=== PATIENT | male | born 1985 ===

== ENCOUNTER 2025-07-31 01:06 | Inpatient (IN) | payer SELFPAY ==
[2025-07-31] VITALS (81 sets, daily range): BP systolic 136–208; BP diastolic 88–116; PULSE 85–108; RESP 7–30; TEMP 36.6–38.5; O2SAT 95–100
--- NOTE | 2025-07-31 01:15 | DI.CT_ITS ---
Exam(s) CT ABDOMEN PELVIS W EXAM: CT ABDOMEN PELVIS W CLINICAL HISTORY: abd pain/vomiting; previous abd surgery. TECHNIQUE: Imaging Protocol: Axial computed tomography images with coronal and sagittal reformatted images were created and reviewed CONTRAST MATERIAL: Intravenous: Omnipaque 350 Contrast volume:75 ml Oral: no COMPARISON: No exams were available for comparison FINDINGS: ABDOMEN and PELVIS: Lung Bases: No acute findings. Liver: Normal density. No suspicious mass. Gallbladder and biliary tract: Cholecystectomy. No biliary dilation. Pancreas: Head of the pancreas is absent. History of Whipple procedure. Some swelling of the body and tail and surrounding stranding in the fat consistent with pancreatitis. There is mild dilatation of the pancreatic duct. There is no evidence of hemorrhage or pseudocyst. No evidence of mass. Spleen: Normal. Kidneys: There is severe atrophy of the upper pole of the right kidney. There is cyst at the lower pole of the right kidney. The some compensatory hypertrophy of the left kidney. No radiodense stones. No obstructive uropathy. No suspicious masses seen. Adrenal glands: No masses seen. Vasculature: Abdominal aorta non-dilated. Soft tissues: Unremarkable. Bladder: No gross wall thickening. No calculi.No focal mass. Bowel: Suture material stomach and and proximal small bowel. No obstruction. No bowel wall thickening. Appendix normal. Peritoneal cavity: No ascites. No focal collection. No mesenteric inflammatory response. No free air. Bones: Unremarkable for age. Reproductive organs: Unremarkable. Lymph nodes: No pathologically enlarged lymph nodes. IMPRESSION:: Pancreatitis. Status post Whipple procedure. The preliminary [facility] report was reviewed. RADIATION DOSE DELIVERED: 246.92mGy.cm Total DLP DATA REPOSITORY: All CT scans at this facility are submitted to the National Radiology Data Registry (NRDR) Dose Index Registry (DIR) with the [employer] [place] [employer] [employer] (ACR). RADIATION OPTIMIZATION: All CT scans at this facility use at least one of these dose optimization techniques: automated exposure control; mA and/or kV adjustment per patient size (includes targeted exams where dose is matched to clinical indication); or iterative reconstruction.
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
[2025-07-31] MEDS: Normal Saline 1,000 ML 1000 ML IV (01:35)
[2025-07-31 01:36] LABS: BE (Venous) 2 mmol/L (-2-3); HCO3 (Venous) 27 mmol/L (23-28); O2 Sat (Venous) 42 %; TCO2 (Venous) 24 mmol/L (24-29); pCO2 (Venous) 47 mmHg (41-51); pO2 (Venous) 24 mmHg
[2025-07-31] MEDS: Ondansetron 4 MG/2 ML VIAL IVP ×3 (01:36→17:14)
[2025-07-31] MEDS: MORPHine 10 MG/ML VIAL 4 MG IVP ×2 (01:36→03:06)
[2025-07-31 01:37] LABS: Abs Immature Grans 0.06 10^3/uL (0.0-0.06); HCT 41.9 % (40.0-50.0); HGB 14.5 g/dL (13.5-17.5); Immature Grans % 0.4 %; MCH 33.2 pg (27.0-33.0); MCHC 34.6 % (32.0-36.0); MCV 96 fL (80-95); MPV 9.8 fL (8.0-11.0); Platelet Count 324 10^3/uL (130-400); RBC 4.37 10^6/uL (4.36-5.78); RDW 11.9 % (11.8-14.1); RDW-SD 42.0 fL; WBC 17.02 10^3/uL (4.4-10.8)
[2025-07-31] MEDS: Omnipaque 350 MG/ML 100 ML BTL IJ (01:38)
[2025-07-31] MEDS: Normal Saline - Diluent 50 ML VIAL IJ (01:38)
[2025-07-31] MEDS: Normal Saline Flush 10 ML SYR IVP ×6 (01:38→21:36)
[2025-07-31 01:56] LABS: Lipase 214 U/L (<53)
[2025-07-31 01:57] LABS: Magnesium 2.0 mg/dL (1.6-2.6)
[2025-07-31 01:58] LABS: ALT 21 U/L (10-49); AST 19 U/L (<34); Albumin 5.1 g/dL (3.2-5.0); Alkaline Phosphatase 57 U/L (46-116); Anion Gap 10.5 mmol/L (3-11); BUN 11 mg/dL (9-23); Bilirubin, Total 1.10 mg/dL (0.2-1.2); CO2 26.5 mmol/L (20.0-31.0); Calcium 9.4 mg/dL (8.3-10.6); Chloride 107 mmol/L (98-107); Glucose 120 mg/dL (74-106); Potassium 4.2 mmol/L (3.5-5.1); Sodium 144 mmol/L (136-145); Total Protein 8.2 g/dL (5.7-8.2)
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
[2025-07-31 02:38] LABS: Glucose Negative (Negative)
--- NOTE | 2025-07-31 04:00 | RT.EKG_ITS ---
APPROVED REPORT Exam: Resting ECG Reason for Exam: chest pain Patient Location: E HR:89 bpm ECG Measurements Heart Rate 89 AXIS OK 129 P 79 QRSd 92 QRS 81 QT 336 T 75 QTc 409 Conclusion Sinus rhythm...normal P axis, V-rate 60- 99 Probable left atrial enlargement...P >50mS, <-0.10mV V1 Normmal [place]/Interval No actue ST changes
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
[2025-07-31] MEDS: Lactated Ringers 1,000 ML 175 ML IV ×3 (05:24→22:18)
--- NOTE | 2025-07-31 05:33 | W.PC.ACHO ---
Registration Status: ADM YADIEL Primary Language: Preferred Language: ED Information & Data Chief Complaint Abd Prob 07/31/25 01:40 Triage Note pt has a whipple, abd pain 07/31/25 01:09 started around 1930 tonight, mid epigastric pain, dull back pain with sharpness, front comes and goes, 04/01 (Last Reviewed 07/31/25 @ 01:45 by Jorge Oden MD) H/O ventral hernia repair S/P cholecystectomy History of partial pancreatectomy Most Recent Vital Signs Temperature 37.4 C 07/31/25 05:11 Temperature Source Tympanic 07/31/25 05:11 Pulse 91 H 07/31/25 05:11 Pulse 90 07/31/25 04:21 Respiratory Rate 16 07/31/25 05:11 Respiratory Effort Normal 07/31/25 04:58 Respiratory Depth Normal 07/31/25 04:58 Respiratory Pattern Normal 07/31/25 04:58 Blood Pressure 136/103 H 07/31/25 05:11 Blood Pressure Mean 114 07/31/25 05:11 Blood Pressure Position Supine 07/31/25 01:09 Pulse Oximetry 99 07/31/25 05:11 Oxygen Delivery Method Room Air 07/31/25 05:11 Oxygen Flow Rate 0 07/31/25 05:11 Pain Level 6 07/31/25 04:58 Allergies No Known Allergies Allergy (Unverified 07/31/25 01:16) Precautions Isolation Standard precaution 07/31/25 01:19 Active Medications Generic Name Dose Route Start Last Admin Trade Name Freq PRN Reason Stop Dose Admin Ringer's Solution 1,000 mls @ 175 mls/hr 07/31/25 04:00 07/31/25 05:24 IV 175 mls/hr INFUSION APOLINAR Administration Iohexol 100 ml 07/31/25 01:45 07/31/25 01:38 Omnipaque 350 Mg/Ml 100 Ml Btl IJ 08/30/25 23:59 75 ml DIRECTED APOLINAR Administration Sodium Chloride 50 ml 07/31/25 01:45 07/31/25 01:38 Normal Saline - Diluent 50 Ml Vial IJ 50 ml DIRECTED APOLINAR Administration Sodium Chloride 0 ml 07/31/25 01:33 07/31/25 01:38 Normal Saline Flush 10 Ml Syr IVP 10 ml PRN PRN Administration IV IV Catheter Type [Right Peripheral IV Antecubital] IV Catheter Gauge [Right 18 Antecubital] Diet Orders Category Date Time Status Nothing Per Oral [DIET] Nutrition 07/31/25 03:58 Active Diagnostics 07/31/25 07/31/25 07/31/25 Range/Units 05:35 04:00 02:30 WBC Pending (4.4-10.8) 10^3/uL RBC Pending (4.36-5.78) 10^6/uL Hgb Pending (13.5-17.5) g/dL Hct Pending (40.0-50.0) % MCV Pending (80-95) fL MCH Pending (27.0-33.0) pg MCHC Pending (32.0-36.0) % RDW Pending (11.8-14.1) % Plt Count Pending (130-400) 10^3/uL MPV Pending (8.0-11.0) fL Immature Gran % Pending % Neutrophils % Pending % Lymphocytes % Pending % Monocytes % Pending % Eosinophils % Pending % Basophils % Pending % Nucleated RBC % (0.0-0.3) % Absolute Neutrophils Pending (1.2-6.7) 10^3/uL Absolute Lymphocytes Pending (1.2-3.4) 10^3/uL Absolute Monocytes Pending (0.1-0.8) 10^3/uL Absolute Eosinophils Pending (0.0-0.7) 10^3/uL Absolute Basophils Pending (0.0-0.2) 10^3/uL VBG pH (7.31-7.41) VBG pCO2 (41-51) mmHg VBG pO2 mmHg VBG HCO3 (23-28) mmol/L VBG Total CO2 (24-29) mmol/L VBG O2 Saturation % VBG Base Excess (-2-3) mmol/L VBG Lactate (<or=2.0) mmol/L Sodium Pending (136-145) mmol/L Potassium Pending (3.5-5.1) mmol/L Chloride Pending (98-107) mmol/L Carbon Dioxide Pending (20.0-31.0) mmol/L Anion Gap Pending (3-11) mmol/L BUN Pending (9-23) mg/dL Creatinine Pending (0.73-1.18) mg/dL Est GFR (CKD-EPI 2020) Pending (mL/min/1.73m2) Glucose Pending (74-106) mg/dL Calcium Pending (8.3-10.6) mg/dL Magnesium (1.6-2.6) mg/dL Total Bilirubin Pending (0.2-1.2) mg/dL AST Pending (<34) U/L ALT Pending (10-49) U/L Alkaline Phosphatase Pending (46-116) U/L Troponin I Pending Total Protein Pending (5.7-8.2) g/dL Albumin Pending (3.2-5.0) g/dL Triglycerides Pending Total Cholesterol Pending LDL Cholesterol, Calc Pending HDL Cholesterol Pending Lipase Pending (<53) U/L Urine Color Yellow (Yellow) Urine Clarity Clear (Clear) Urine pH 7.0 (5-8) Ur Specific [place] 1.015 (1.005-1.025) Urine Protein Negative (Neg-Trace) mg/dL Urine Ketones 40 H (Negative) mg/dL Urine Blood Negative (Negative) Urine Nitrite Negative (Negative) Urine Bilirubin Negative (Negative) Urine Urobilinogen 2.0 H (Up to 0.2) mg/dL Ur Leukocyte Esterase Negative (Negative) Urine Glucose Negative (Negative) mg/dL Ethyl Alcohol Pending 07/31/25 Range/Units 01:20 WBC 17.02 H (4.4-10.8) 10^3/uL RBC 4.37 (4.36-5.78) 10^6/uL Hgb 14.5 (13.5-17.5) g/dL Hct 41.9 (40.0-50.0) % MCV 96 H (80-95) fL MCH 33.2 H (27.0-33.0) pg MCHC 34.6 (32.0-36.0) % RDW 11.9 (11.8-14.1) % Plt Count 324 (130-400) 10^3/uL MPV 9.8 (8.0-11.0) fL Immature Gran % 0.4 % Neutrophils % 85.8 % Lymphocytes % 5.4 % Monocytes % 7.9 % Eosinophils % 0.1 % Basophils % 0.4 % Nucleated RBC % 0.0 (0.0-0.3) % Absolute Neutrophils 14.60 H (1.2-6.7) 10^3/uL Absolute Lymphocytes 0.92 L (1.2-3.4) 10^3/uL Absolute Monocytes 1.34 H (0.1-0.8) 10^3/uL Absolute Eosinophils 0.02 (0.0-0.7) 10^3/uL Absolute Basophils 0.07 (0.0-0.2) 10^3/uL VBG pH 7.37 (7.31-7.41) VBG pCO2 47 (41-51) mmHg VBG pO2 24 mmHg VBG HCO3 27 (23-28) mmol/L VBG Total CO2 24 (24-29) mmol/L VBG O2 Saturation 42 % VBG Base Excess 2 (-2-3) mmol/L VBG Lactate 1.6 (<or=2.0) mmol/L Sodium 144 (136-145) mmol/L Potassium 4.2 (3.5-5.1) mmol/L Chloride 107 (98-107) mmol/L Carbon Dioxide 26.5 (20.0-31.0) mmol/L Anion Gap 10.5 (3-11) mmol/L BUN 11 (9-23) mg/dL Creatinine 0.88 (0.73-1.18) mg/dL Est GFR (CKD-EPI 2020) 95.54 (mL/min/1.73m2) Glucose 120 H (74-106) mg/dL Calcium 9.4 (8.3-10.6) mg/dL Magnesium 2.0 (1.6-2.6) mg/dL Total Bilirubin 1.10 (0.2-1.2) mg/dL AST 19 (<34) U/L ALT 21 (10-49) U/L Alkaline Phosphatase 57 (46-116) U/L Troponin I Total Protein 8.2 (5.7-8.2) g/dL Albumin 5.1 H (3.2-5.0) g/dL Triglycerides Total Cholesterol LDL Cholesterol, Calc HDL Cholesterol Lipase 214 H (<53) U/L Urine Color (Yellow) Urine Clarity (Clear) Urine pH (5-8) Ur Specific [place] (1.005-1.025) Urine Protein (Neg-Trace) mg/dL Urine Ketones (Negative) mg/dL Urine Blood (Negative) Urine Nitrite (Negative) Urine Bilirubin (Negative) Urine Urobilinogen (Up to 0.2) mg/dL Ur Leukocyte Esterase (Negative) Urine Glucose (Negative) mg/dL Ethyl Alcohol Intake and Output - 24 Hour Total 07/31/25 01:06 thru 07/31/25 04:58 Intake Total 1000 Balance 1000 Weight 65.544 kg Intake: IV 1000 Falls Risk Assessment History of Falls No History 07/31/25 04:58 Contributing Factors No Factors 07/31/25 04:58 Ambulatory Aids Independent 07/31/25 04:58 Tubes/Lines W/no contributing factors 07/31/25 04:58 Gait Evaluation No gait disturbance 07/31/25 04:58 Cognition No cognitive impairment 07/31/25 01:23 Fall Total Score 10 07/31/25 04:58 Level of Risk Standard/Low Risk 07/31/25 04:58 Problems Chest pain (Acute) Acute pancreatitis (Acute) Attestation Statement: By documenting the first initial, last name, and credentials of the reporting nurse below, both parties acknowledge that all relevant information regarding the patient handoff has been communicated, and that all questions have been addressed to ensure continuity and safety of care. Additional Patient Information/Comments: ABD pain N/V few weeks ago, AOx4, BP 181/106 probably related to pain, morphine give x2 dose with some relief, zofran and fluid received at the ER. ALL questions unswered Report Received From: [facility]
[2025-07-31] MEDS: MORPHine 2 MG/ML SYR IVP (06:18)
[2025-07-31 06:51] LABS: Abs Immature Grans 0.06 10^3/uL (0.0-0.06); HCT 38.6 % (40.0-50.0); HGB 13.4 g/dL (13.5-17.5); Immature Grans % 0.4 %; MCH 33.6 pg (27.0-33.0); MCHC 34.7 % (32.0-36.0); MCV 97 fL (80-95); MPV 9.9 fL (8.0-11.0); Platelet Count 272 10^3/uL (130-400); RBC 3.99 10^6/uL (4.36-5.78); RDW 12.0 % (11.8-14.1); RDW-SD 43.1 fL; WBC 14.82 10^3/uL (4.4-10.8)
[2025-07-31 07:05] LABS: Lipase 121 U/L (<53)
[2025-07-31 07:07] LABS: ALT 18 U/L (10-49); AST 15 U/L (<34); Albumin 4.5 g/dL (3.2-5.0); Alkaline Phosphatase 50 U/L (46-116); Anion Gap 9.7 mmol/L (3-11); BUN 8 mg/dL (9-23); Bilirubin, Total 1.10 mg/dL (0.2-1.2); CO2 25.3 mmol/L (20.0-31.0); Calcium 8.5 mg/dL (8.3-10.6); Chloride 108 mmol/L (98-107); Glucose 110 mg/dL (74-106); Potassium 4.2 mmol/L (3.5-5.1); Sodium 143 mmol/L (136-145); Total Protein 7.1 g/dL (5.7-8.2)
[2025-07-31 07:08] LABS: Cholesterol 94 mg/dL (<200); HDL Cholesterol 31 mg/dL (>40); Troponin I < 3 ng/L (<54)
[2025-07-31] MEDS: Acetaminophen 325 MG TAB PO ×3 (08:10→18:33)
[2025-07-31] MEDS: Enoxaparin 40 MG/0.4 ML SYR SC (08:12)
--- NOTE | 2025-07-31 09:01 | INITIAL_ITS ---
Date of service: 07/31/25 Time of Service: 09:01 Care Management Initial Assmt Initial Assessment Reason for Hospitalization: pancreatitis Functional Status/Living Situation Patient Presentation: Phillip was sitting up in bed when CM met with him. He was easily engaged and soft spoken. Phillip admitted to being in a lot of pain and could be seen grimacing every few minutes. He shared that he has been sick since but didn't want to seek medical help. Phillip does not have a PCP nor does he have insurance. He explained that while his employer offers insurance, he cannot afford it. CM made a referral to [facility] to see if he is eligible for Medicaid. CM al;so provided Phillip with a Patient Financial Assist packet. Phillip is and has a 3 year old son. He and his ex- share custody and it has worked out well for all. 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 Town of Residence: [place] Resides with: Child (shares custody of son) Significant Other/Family: [facility] Employment Status: Employed Instrumental Activities of Daily Living (ADLs): Independent Medications Medication Management: No Issues/Barriers identified Physical Functioning/Mobility Assistive Device: none Advance Directives Advance Directives: Do you have an Advance Directive: N , 13:07 AD On File at [facility]: N 06/06/14, 13:07 Date Asked 07/31/25 Today, 07:46 AD Date Reviewed COLST On File at [facility] COLST Date Scanned Code Status Resuscitation Status Full Code Portal Pt does not currently have a portal and education provided: Yes Care Team Visit Care Team Role Provider Type Obi Alberto MD MD [facility] STAFF PHYSICIAN Unknown Unknown Primary Care Provider STAFF PHYSICIAN Jorge Oden MD Emergency Provider [facility] STAFF PHYSICIAN Jorge Burris MD Admit Provider [facility] STAFF PHYSICIAN Attending Provider Discharge Potential Discharge Needs: PCP F/U Appt Anticipated Barriers to Discharge: None Identified Patient/Family Education Needs: Review discharge instructions, discuss Ask Me Three Transportation: Private vehicle Plan: Anticipate Phillip will be discharged home with no new services when medically cleared. He will follow up with the T-doc assigned and transport with family. CM will follow and continue to assess for discharge concerns. Social Determinants of Health Screening Social Determinants of health last assessed in clinic: 07/31/25 Will the Patient Participate in the Screening?: Yes Do you worry about having a steady place to live?: no Problems where you live: no known problems In the past 12 months, have you had to go without electric, gas, oil or water in your home?: no 1. Within the past 12 months, we worried whether our food would run out before we got money to buy more.: Never true 2. Within the past 12 months, the food we bought just didn't last and we didn't have money to get more.: Never true Has lack of transportation kept you from medical appointments or from doing things needed for daily living?: no Has anyone in your life made you feel unsafe or unsupported?: no How hard is it for you to pay for the very basics like food, housing, medical care, and heating? Would you say it is:: Not hard at all Do you want help finding or keeping work or a job?: I do not need or want help If for any reason you need help with day-to-day activities such as bathing, preparing meals, shopping, managing finances, etc., do you get the help you need?: I don?t need any help How often do you feel lonely or isolated from those around you?: Never Do you speak a language other than Moh[place] at home?: No Does the patient want assistance with any of the above?: No PFSH All Active Problems (Updated 07/31/25 @ 04:07 by Jorge Burris MD) Chest pain (Acute) Acute pancreatitis (Acute) Surgical History H/O ventral hernia repair S/P cholecystectomy History of partial pancreatectomy Social History Smoking/Tobacco Use Status: Current every day Tobacco Type: cigarettes Smoking risk assessment performed?: Yes Drug use: Rarely Substance use type: marijuana Housing: house
[2025-07-31] MEDS: MORPHine 2 MG/ML SYR 4 MG IVP ×3 (11:04→21:36)
--- NOTE | 2025-07-31 15:40 | PHA.REVIEW2 ---
Pharmacy Admission Review Admission Clinical Review Admission Pharmacy Review: Chest pain (Acute) Acute pancreatitis (Acute) No Known Allergies Allergy (Unverified 07/31/25 01:16) Resuscitation Status Full Code Height 5 ft 11 in Weight 65.544 kg Pharmacy Admission Review Renal Dosing Renal Dosing: BUN 8 mg/dL (9-23) L 07/31/25 06:15 Creatinine 0.80 mg/dL (0.73-1.18) 07/31/25 06:15 Medications needing adjustments: Reviewed (scr=0.8; wqws=392nl/min; reviewed meds no adjustment needed) Anticoagulation Anticoagulation: Hgb 13.4 g/dL (13.5-17.5) L 07/31/25 06:15 Hct 38.6 % (40.0-50.0) L 07/31/25 06:15 Plt Count 272 10^3/uL (130-400) 07/31/25 06:15 Creatinine 0.80 mg/dL (0.73-1.18) 07/31/25 06:15 DVT Prophylaxis: Reviewed Medications: Enoxaparin Opiate Usage Evaluate Pain Scale/Pains Meds: Reviewed Scheduled Bowel Reg ordered if on Opiates?: Yes Relevant Labs Relevant Labs: Sodium 143 mmol/L (136-145) 07/31/25 06:15 Potassium 4.2 mmol/L (3.5-5.1) 07/31/25 06:15 Chloride 108 mmol/L (98-107) H 07/31/25 06:15 Magnesium 2.0 mg/dL (1.6-2.6) 07/31/25 01:20 Electrolytes, C-Reactive P, ESR: Reviewed (reviewed labs; no intervention needed ) DM Control DM Control: Reviewed (am [id number]; no history of DM. ) Cardiac Review Cardiac Review: Troponin I < 3 ng/L (<54) 07/31/25 06:15 BP, HR, EF%: Reviewed (bp 158/99; hr 87-pt doesn't take any meds at home for HTN. ) QTc Review QTc: Reviewed (cto=313) IV to PO Switch IV Medications: Reviewed (pt is just transitioning from npo to clears today) Home Meds Home Med List reviewed: Reviewed (no home meds per med rec) Current Meds Current Medication Order Review: Reviewed Pharmacy Antibiotic Review Comments: no antibiotics at this time
[2025-07-31] MEDS: Zolpidem 10 MG TAB PO (21:36)
--- NOTE | 2025-08-01 | DI.CT_ITS ---
Exam(s) CT ABDOMEN PELVIS W EXAM: CT ABDOMEN PELVIS W CLINICAL HISTORY: hx panc repair / Whipple, new pain/fever. TECHNIQUE: Imaging Protocol: Axial computed tomography images with coronal and sagittal reformatted images were created and reviewed CONTRAST MATERIAL: Intravenous: Omnipaque 350 Contrast volume:75 ml Oral: yes COMPARISON: CT CT ABDOMEN PELVIS W from 07/31/2025 FINDINGS: ABDOMEN and PELVIS: Lung Bases: Small left pleural effusion, new since prior. Liver: Normal density. No suspicious mass. Gallbladder and biliary tract: Cholecystectomy. Status post Whipple procedure.. No biliary dilation. Pancreas: Status post Whipple procedure. Pancreatic duct again dilated. Stranding in the surrounding fat consistent with pancreatitis. There is mildly increased from the prior exam. No evidence of pseudocyst formation or hemorrhage. No abnormal calcifications . No evidence of mass. Spleen: Normal. Kidneys: The right kidney is again showed to show severe atrophy at the upper pole. No radiodense stones. No obstructive uropathy. No suspicious masses seen. Adrenal glands: No masses seen. Vasculature: Abdominal aorta non-dilated. Soft tissues: Unremarkable. Bladder: No gross wall thickening. No calculi.No focal mass. Bowel: Status post Whipple procedure. No obstruction. There is mild wall thickening of the duodenum, adjacent to the pancreas. No bowel wall thickening. Appendix normal. Peritoneal cavity: Increased ascites noted in the pelvis and right lower quadrant. Increased fluid around the spleen. No focal collection. No mesenteric inflammatory response. No free air. Bones: Unremarkable for age. Reproductive organs: Unremarkable. Lymph nodes: No pathologically enlarged lymph nodes. IMPRESSION:: Mild interval increase in inflammation surrounding the pancreas. Inflammation narrow involve the duodenum. No evidence of hemorrhage or pseudocyst. Increased ascites. New small left pleural effusion. The preliminary [facility] report was reviewed. RADIATION DOSE DELIVERED: 321.13mGy.cm Total DLP DATA REPOSITORY: All CT scans at this facility are submitted to the National Radiology Data Registry (NRDR) Dose Index Registry (DIR) with the [employer] (ACR). RADIATION OPTIMIZATION: All CT scans at this facility use at least one of these dose optimization techniques: automated exposure control; mA and/or kV adjustment per patient size (includes targeted exams where dose is matched to clinical indication); or iterative reconstruction.
[2025-08-01] MEDS: Acetaminophen 325 MG TAB PO ×3 (02:32→17:26)
[2025-08-01] MEDS: Lactated Ringers 1,000 ML 175 ML IV ×4 (03:18→20:17)
[2025-08-01] MEDS: MORPHine 2 MG/ML SYR 4 MG IVP ×4 (05:50→22:20)
[2025-08-01 07:44] VITALS: BP 159/95; PULSE 101; RESP 18; TEMP 37.4; O2SAT 98
[2025-08-01 07:58] LABS: HCT 39.2 % (40.0-50.0); HGB 13.6 g/dL (13.5-17.5); MCH 33.4 pg (27.0-33.0); MCHC 34.7 % (32.0-36.0); MCV 96 fL (80-95); MPV 9.8 fL (8.0-11.0); Platelet Count 196 10^3/uL (130-400); RBC 4.07 10^6/uL (4.36-5.78); RDW 12.0 % (11.8-14.1); RDW-SD 42.9 fL; WBC 16.40 10^3/uL (4.4-10.8)
[2025-08-01] MEDS: Enoxaparin 40 MG/0.4 ML SYR SC (08:38)
[2025-08-01] MEDS: Normal Saline Flush 10 ML SYR IVP ×5 (08:39→22:21)
--- NOTE | 2025-08-01 09:53 | PGE_ITS ---
Date of Service Date of service: 08/01/25 Time of Service: 09:53 Assessment and Plan Assessment and plan (1) Acute pancreatitis: Status: Acute Assessment and plan: - Pancreatitis on admission with a lipase of 214 and abdominal pain, also seen on CT abdomen pelvis - Has been on IV fluids, will continue until p.o. intake improves - Patient at risk of pancreatitis due to abdominal trauma resulting in Whipple procedure about 10 years ago - Continue as needed Tylenol and morphine for intermittent pain, though patient been primarily attempting to use Tylenol (2) Chest pain: Status: Acute Assessment and plan: - Resolved - EKG without acute findings Discharge Planning Discharge Planning: Once patient's p.o. intake/tolerance improves as well as diminishing requirement of IV pain medication, hopefully tomorrow 08/02/2025 Subjective Subjective Interval history since last seen: Patient states that he has been feeling better and that his abdominal pain is improved. He has also been increasing his p.o. intake and has had improved tolerance. Otherwise he has no other complaints or concerns at this time. Exam Narrative Exam Narrative: Well-appearing gentleman laying in bed in no acute distress, ANO x 4, heart regular rhythm, lungs good auscultation bilaterally, abdomen soft, with minimal diffuse tenderness and very well-healed midline scar Objective Last Vital Signs Temp 99.3 F 08/01/25 07:44 Pulse 101 H 08/01/25 07:44 Resp 18 08/01/25 07:44 BP 159/95 H 08/01/25 07:44 Pulse Ox 98 08/01/25 07:44 Laboratory Results - last 24 hr 08/01/25 07:30 WBC 16.40 H RBC 4.07 L Hgb 13.6 Hct 39.2 L MCV 96 H MCH 33.4 H MCHC 34.7 RDW 12.0 Plt Count 196 MPV 9.8 VTE Prohylaxis Risk Level: Low Risk Contraindications: None Prophylaxis: Pharmacologic Time Spent with Patient Time Spent with Patient: >50 minutes Time was spent: preparing to see the patient(eg.review tests), obtaining and/or reviewing separately otained hiistory, ordering medications,tests, procedures, referring, communicating with other health dialysis patient care technician, indepentently interpreting results, counseling the patient and care coordination
--- NOTE | 2025-08-01 10:45 | PDOC.CMPRO ---
Date of service: 08/01/25 Time of Service: 14:21 Care Management Progress Note Progress Note Text Progress Note Text: Phillip was sitting up in his chair and awake when CM met with him. Per report his p.o. intake continues to improve and his diet will be advanced as tolerated. Per provider, it is anticipate that he will be discharged tomorrow. CM continues to communicate with Elisha regarding insurance eligability for Phillip. Phillip will require a work note prior to discharge. CM will follow. Discharge Potential Discharge Needs: PCP F/U Appt Anticipated Barriers to Discharge: None Identified Patient/Family Education Needs: Review discharge instructions, discuss Ask Me Three Transportation: Private vehicle Plan: Anticipate Phillip will be discharged home with no new services when medically cleared; Likely tomorrow. He will require a work note. He will follow up with the T-doc assigned, Elisha, and discharge plan of care. Phillip will transport via private car by his dad. CM will follow. Social Determinants of Health Screening Social Determinants of health last assessed in clinic: 08/01/25 Will the Patient Participate in the Screening?: Yes Do you worry about having a steady place to live?: no Problems where you live: no known problems In the past 12 months, have you had to go without electric, gas, oil or water in your home?: no 1. Within the past 12 months, we worried whether our food would run out before we got money to buy more.: Don't know/refused 2. Within the past 12 months, the food we bought just didn't last and we didn't have money to get more.: Don't know/refused Has lack of transportation kept you from medical appointments or from doing things needed for daily living?: no Has anyone in your life made you feel unsafe or unsupported?: no How hard is it for you to pay for the very basics like food, housing, medical care, and heating? Would you say it is:: Not hard at all Do you want help finding or keeping work or a job?: I do not need or want help If for any reason you need help with day-to-day activities such as bathing, preparing meals, shopping, managing finances, etc., do you get the help you need?: I don?t need any help How often do you feel lonely or isolated from those around you?: Never Do you speak a language other than K[place] at home?: No Does the patient want assistance with any of the above?: No
--- NOTE | 2025-08-01 11:06 | CHAPLAIN ---
Phillip was resting in bed when I visited. He was pleasant and engaged in a conversation. He is soft spoken and said he's starting to feel better. Edy told me that he had major surgery 10 years ago and then this bout of pancreatitis caught him off guard. Phillip lives in [place] and works in [place]. He came to [facility] because this is where his nearly-three year old son was born. Phillip showed me photos of his son. His dad will be in later to visit, Phillip said. I explained my role and offered support.
[2025-08-01 12:31] VITALS: BP 156/97; PULSE 106; RESP 17; TEMP 37.1; O2SAT 99
[2025-08-01] MEDS: Ondansetron O.D.T. 4 MG TABEF PO (12:35)
[2025-08-01 17:55] VITALS: BP 157/80; PULSE 125; RESP 24; TEMP 39.2; O2SAT 97
[2025-08-01] MEDS: Omnipaque 350 MG/ML 100 ML BTL IJ (19:31)
[2025-08-01] MEDS: Normal Saline - Diluent 50 ML VIAL IJ (19:31)
[2025-08-01 19:35] VITALS: BP 151/90; PULSE 97; RESP 19; TEMP 37.1; O2SAT 95
--- NOTE | 2025-08-01 19:48 | DI.[facility]AD_ITS ---
PROCEDURE INFORMATION: Exam: CT Abdomen And Pelvis With Contrast Exam date and time: 08/01/2025 7:23 PM Age: 39 years old Clinical indication: Abdominal pain; Generalized; Prior surgery; Surgery date: 6+ months; HX panc repair / whipple, new pain/fever TECHNIQUE: Imaging protocol: Computed tomography of the abdomen and pelvis with contrast. Radiation optimization: All CT scans at this facility use at least one of these dose optimization techniques: automated exposure control; mA and/or kV adjustment per patient size (includes targeted exams where dose is matched to clinical indication); or iterative reconstruction. Contrast material: [id number]; Contrast volume: 75 ml; Contrast route: INTRAVENOUS (IV); COMPARISON: CT ABDOMEN PELVIS W 07/31/2025 1:37 AM FINDINGS: Liver: The liver has a overall normal appearance. Gallbladder and biliary ducts: The gallbladder is not visualized and may be surgically absent. Pancreas: As before, there is severe peripancreatic fat stranding. The extent of fat stranding is slightly increased in extent when compared with the CT dated 07/31/2025. The pancreatic duct remains dilated measuring up to 7 mm in diameter. There is homogeneous enhancement of the pancreatic body and tail. The head and uncinate process are not visualized and are presumably surgically absent in the setting of previous Whipple. Spleen: The spleen demonstrates normal size. Adrenal glands: The adrenal glands have a normal appearance. Kidneys and ureters: The superior aspect of the right kidney is markedly atrophic. The inferior right kidney demonstrates mild cortical atrophy. There is a hypodense right renal cyst. The left kidney demonstrates normal size. Stomach and bowel: The bowel demonstrates overall normal caliber and wall thickness. Appendix: The appendix is thin walled. Intraperitoneal space: Trace low-density free fluid is present within the pelvis. There is increased free low-density perisplenic fluid when compared with the CT dated 07/31/2025. Vasculature: The IVC and aorta have a normal appearance. Lymph nodes: No enlarged lymph nodes. Urinary bladder: Unremarkable as visualized. Reproductive: Unremarkable as visualized. Bones/joints: Bones have a normal appearance. No acute fracture or suspicious bone lesion. Soft tissues: An serpiginous hypodense focus is present near the falciform ligament which may represent focal fat. IMPRESSION: 1. Slightly increased peripancreatic fat stranding and new perisplenic fluid consistent with ongoing acute pancreatitis, slightly increased in severity from the prior study. No findings to suggest pancreatic necrosis at this time. 2. No other acute intra-abdominal findings. 3. Normal appendix. Dictated and Authenticated by: Colette Roberts MD. Orderin Azam Jean MD
[2025-08-01] MEDS: Zolpidem 10 MG TAB PO (22:21)
[2025-08-02 02:18] VITALS: BP 157/96; TEMP 37.5
[2025-08-02] MEDS: MORPHine 2 MG/ML SYR 4 MG IVP ×2 (02:21→06:12)
[2025-08-02] MEDS: Lactated Ringers 1,000 ML 175 ML IV (03:48)
[2025-08-02] MEDS: Acetaminophen 325 MG TAB PO ×2 (03:50→13:13)
[2025-08-02] MEDS: Enoxaparin 40 MG/0.4 ML SYR SC (08:27)
[2025-08-02] MEDS: Normal Saline Flush 10 ML SYR IVP (08:27)
[2025-08-02 08:38] VITALS: BP 129/85; PULSE 115; RESP 16; TEMP 37.3; O2SAT 97
--- NOTE | 2025-08-02 11:41 | PDOC.CMDIS ---
Date of service: 08/02/25 Time of Service: 11:41 LACE Index Scoring Tool Questions: Length of Stay (in days): 2 Was the patient admitted via the E.D.?: Yes E.D. Visits: 1 Answers: Total Score: 6 Risk of Readmission: Low Risk Care Management Discharge Plan Reason for Hospitalization: Pancreatitis Discharge Plan: Phillip will be discharged home with no new services today. He will require a work note. He will follow up with the T-doc assigned, Elisha, and discharge plan of care. Phillip will transport via private car by his dad. CM offer the phone number to Elisha regarding new insurance. Patient/Family Education Needs: Review discharge instructions, limitations, and activity. Discuss Ask Me Three.
--- NOTE | 2025-08-02 13:08 | DSE_ITS ---
Date of service: 08/02/25 Time of Service: 13:08 DS: Diagnosis Discharge Diagnosis (1) Acute pancreatitis: Status: Acute (2) Chest pain: Status: Acute Discharge Plan Disposition Patient Disposition: Home Condition: Good Discharge Details Reason For Visit: Pancreatitis Admit Date/Time: 07/31/25 03:57 Admit Provider: Jorge Burris Attending Provider: Jorge Burris Primary Care Provider: Unknown,Unknown Hospital Course Hospital Course: Patient initially presented to the hospital with abdominal pain and was found to have an acute pancreatitis both with elevated lipase and on CT imaging. He was initially on liquid diet and required IV morphine for pain however this was slowly weaned and he was able to tolerate pain with Tylenol. He did have 2 episodes of fever with a repeat CT that that should not show any worsening of his pancreatitis or development of abscess. On the morning of 08/02/2025 patient was able to tolerate full diet and did not require any IV morphine, therefore was determined that he was stable for discharge home. Home Meds and New Rx's Prescriptions: New ondansetron 4 mg Tablet,Disintegrating 4 mg PO Q6H PRN PRNQty: 12 0RF oxycodone 5 mg tablet 5 mg PO Q8H PRNQty: 12 0RF Discharge Instructions Stand Alone Forms: Portal Information Activity:: Activity as Tolerated Equipment/Supplies:: No Equipment Needed Diet:: As Tolerated Discharge Orders Discharge Orders: Discharge Order (Routine); Ordered 08/02/25 Ordered By: Obi Alberto DS: Summary Time Spent with Patient providing and/or coordinating discharge services: Greater than 30 minutes Status at Discharge Functional status at discharge: independent ambulation Overall status at discharge: patient is back to baseline Mental Status: mental status grossly normal Speech and Movement: speech and movement normal Mood: congruent mood Affect: normal affect Exam Narrative Exam Narrative: Well-appearing gentleman laying in bed in no acute distress, ANO x 4, heart regular rhythm, lungs good auscultation bilaterally, abdomen soft, with minimal diffuse tenderness and very well-healed midline scar Psych Mental Status: mental status grossly normal Speech and Movement: speech and movement normal Mood: congruent mood Affect: normal affect DS: Data Vitals/I&O Vitals and I&O: Vital Signs Temperature 99.1 F 08/02/25 08:38 Temperature Source Temporal Artery Scan 08/02/25 08:38 Pulse 115 H 08/02/25 08:38 Pulse 90 07/31/25 04:21 Respiratory Rate 16 08/02/25 08:38 Respiratory Effort Normal 07/31/25 04:58 Respiratory Depth Normal 07/31/25 04:58 Respiratory Pattern Normal 07/31/25 04:58 Blood Pressure 129/85 08/02/25 08:38 Blood Pressure Mean 99 08/02/25 08:38 Blood Pressure Position Supine 07/31/25 01:09 Pulse Oximetry 97 08/02/25 08:38 Oxygen Delivery Method Room Air 08/02/25 08:38 Oxygen Flow Rate 0 08/02/25 08:38 Pain Level 0 08/02/25 08:27 Comment RN in room 08/01/25 17:55 Intake & Output 08/01/25 08/02/25 08/02/25 17:59 05:59 17:59 Intake Total 2155. / 2155.1999 1340.833 / 1340.833 Balance 2155. / 1999 1340.833 / 1340.833 Weight 142 lb 13.753 oz 144 lb 2.917 oz Intake: IV 1936.25 / 1936.1999 / 3935. 880.833 / 880.833 Oral 220 / 220 460 / 460 Other: Urine Color Yellow Yellow Urine Appearance Clear Clear Urine Odor Normal Comment pt voids to toilet. unmeasured Stool Size Moderate Stool Characteristics Soft Formed Data Completed and Pending Pending Labs at Discharge: 07/31/25 07/31/25 07/31/25 01:20 02:30 06:15 WBC 17.02 H 14.82 H RBC 4.37 3.99 L Hgb 14.5 13.4 L Hct 41.9 38.6 L MCV 96 H 97 H MCH 33.2 H 33.6 H MCHC 34.6 34.7 RDW 11.9 12.0 Plt Count 324 272 MPV 9.8 9.9 Immature Gran % 0.4 0.4 Neutrophils % 85.8 87.2 Lymphocytes % 5.4 5.3 Monocytes % 7.9 6.8 Eosinophils % 0.1 0.0 Basophils % 0.4 0.3 Nucleated RBC % 0.0 0.0 Absolute Neutrophils 14.60 H 12.92 H Absolute Lymphocytes 0.92 L 0.79 L Absolute Monocytes 1.34 H 1.01 H Absolute Eosinophils 0.02 0.00 Absolute Basophils 0.07 0.04 VBG pH 7.37 VBG pCO2 47 VBG pO2 24 VBG HCO3 27 VBG Total CO2 24 VBG O2 Saturation 42 VBG Base Excess 2 VBG Lactate 1.6 Sodium 144 143 Potassium 4.2 4.2 Chloride 107 108 H Carbon Dioxide 26.5 25.3 Anion Gap 10.5 9.7 BUN 11 8 L Creatinine 0.88 0.80 Est GFR (CKD-EPI 2020) 95.54 106.65 Glucose 120 H 110 H Calcium 9.4 8.5 Magnesium 2.0 Total Bilirubin 1.10 1.10 AST 19 15 ALT 21 18 Alkaline Phosphatase 57 50 Troponin I < 3 Total Protein 8.2 7.1 Albumin 5.1 H 4.5 Triglycerides 67 Total Cholesterol 94 LDL Cholesterol, Calc 49.9 HDL Cholesterol 31 L Lipase 214 H 121 H Urine Color Yellow Urine Clarity Clear Urine pH 7.0 Ur Specific [place] 1.015 Urine Protein Negative Urine Ketones 40 H Urine Blood Negative Urine Nitrite Negative Urine Bilirubin Negative Urine Urobilinogen 2.0 H Ur Leukocyte Esterase Negative Urine Glucose Negative Ethyl Alcohol < 3.0 08/01/25 07:30 WBC 16.40 H RBC 4.07 L Hgb 13.6 Hct 39.2 L MCV 96 H MCH 33.4 H MCHC 34.7 RDW 12.0 Plt Count 196 MPV 9.8 Immature Gran % Neutrophils % Lymphocytes % Monocytes % Eosinophils % Basophils % Nucleated RBC % Absolute Neutrophils Absolute Lymphocytes Absolute Monocytes Absolute Eosinophils Absolute Basophils VBG pH VBG pCO2 VBG pO2 VBG HCO3 VBG Total CO2 VBG O2 Saturation VBG Base Excess VBG Lactate Sodium Potassium Chloride Carbon Dioxide Anion Gap BUN Creatinine Est GFR (CKD-EPI 2020) Glucose Calcium Magnesium Total Bilirubin AST ALT Alkaline Phosphatase Troponin I Total Protein Albumin Triglycerides Total Cholesterol LDL Cholesterol, Calc HDL Cholesterol Lipase Urine Color Urine Clarity Urine pH Ur Specific [place] Urine Protein Urine Ketones Urine Blood Urine Nitrite Urine Bilirubin Urine Urobilinogen Ur Leukocyte Esterase Urine Glucose Ethyl Alcohol PFSH All Active Problems (Updated 08/02/25 @ 13:08 by Obi Alberto MD) Chest pain (Acute) Acute pancreatitis (Acute) Surgical History H/O ventral hernia repair S/P cholecystectomy History of partial pancreatectomy Social History Smoking/Tobacco Use Status: Current every day Tobacco Type: cigarettes Smoking risk assessment performed?: Yes Drug use: Rarely Substance use type: marijuana Housing: house Time Spent with Patient Time Spent with Patient: <45 minutes Time was spent: preparing to see the patient(eg.review tests), obtaining and/or reviewing separately otained hiistory, ordering medications,tests, procedures, referring, communicating with other health memory care program director, indepentently interpreting results, counseling the patient and care coordination
== END 2025-08-02 14:11 | disposition home or self-care (01) | DRG 440 ==
LOC: ER 04:35 → MS 05:03
PROVIDERS: Admitting Provider Hospitalist; Emergency Provider Emergency Medicine; Responsible Provider Family Medicine; Visit Provider Hospitalist
DX: K85.90 Acute pancreatitis without necrosis or infection, unspecified (principal); R07.89 Other chest pain; F17.210 Nicotine dependence, cigarettes, uncomplicated; Z90.411 Acquired partial absence of pancreas; R50.9 Fever, unspecified
CPT/HCPCS: 00123; 36415; 80053; 80061; 82805; 83690; 85027; 93005; 96361; 96374; 96375; 99285; J1650; 74177; 80320; 81003; 83605; 83735; 84484; 85025; 93010; 99222; 99233; 99239; J2270; J2405; J3490